=== PATIENT | male | born 1990 | race African-American/Black ===

== ENCOUNTER 2017-02-28 12:12 | Emergency (ER) | payer SELFPAY ==
[~2017-02-28] VITALS: Ht 190.5 cm; Wt 95.0 kg
[2017-02-28 12:13] VITALS: BP 167/97; PULSE 78; RESP 15; TEMP 98.2; O2SAT 99
--- NOTE | 2017-02-28 12:20 | PD ---
HPI Chief Complaint: Medication Refill Request Time Seen by Provider: 12:19 Travel History International Travel<30 days: No Contact w/Intl Traveler<30days: No Traveled to known affect area: No History of Present Illness HPI 26 YO M with PMH of HTN presents to the ED requesting a medication refill. Patient states he has been out of hydrochlorothiazide for 3 days. He states that he has follow-up with a new primary care provider early next month. He denies any somatic complaints but states that he gets quite anxious when he doesn't have his medication. He endorses history of familial blood pressure problems but no cardiac history. He does not smoke. States blood pressure was 137/80 this morning, which prompted him to seek treatment. Visiting a cousin in [facility]. Lives in [facility]. PFSH Past Medical History Cardiovascular Problems: Yes (htn) Respiratory: Yes (astma) Social History Tobacco Use: No Allergies-Medications (Allergen,Severity, Reaction): Coded Allergies: Shellfish (Verified Allergy, Unknown, 02/28/17) Review of Systems Except as stated in HPI: all other systems reviewed are Neg Physical Exam Narrative GENERAL: Well-nourished, well-developed pleasant athletic black male in no acute distress. SKIN: Focused skin assessment warm/dry. HEAD: Normocephalic. EYES: No scleral icterus. No injection or drainage. NECK: Supple, trachea midline. No JVD or lymphadenopathy. CARDIOVASCULAR: Regular rate and rhythm without murmurs, gallops, or rubs. RESPIRATORY: Breath sounds clear and equal bilaterally. No accessory muscle use. GASTROINTESTINAL: Abdomen soft, non-tender, nondistended. Active bowel sounds. MUSCULOSKELETAL: No cyanosis, or edema. Ambulatory with a normal gait. BACK: Nontender without obvious deformity. No CVA tenderness. Data Data Last Documented VS Vital Signs Date Time Temp Pulse Resp B/P Pulse Ox O2 Delivery O2 Flow Rate FiO2 02/28/17 12:13 98.2 78 15 167/97 99 Orders Hydrochlorothiazide (Hydrodiuril) (02/28/17 12:30) [facility] Medical Decision Making Medical Screen Exam Complete: Yes Emergency Medical Condition: Yes Differential Diagnosis Chronic hypertension versus medication refill versus anxiety versus other Narrative Course 26 YO M with PMH of HTN presents to the ED requesting a medication refill. Patient states he has been out of hydrochlorothiazide for 3 days. He is visiting a cousin here and lives in [facility]. He states that he has follow- up with a new primary care provider early next month. He denies any somatic complaints but states that he gets quite anxious when he doesn't have his medication. He endorses history of familial blood pressure problems but no cardiac history. He does not smoke. States blood pressure was 137/80 this morning, which prompted him to seek treatment. Vitals reviewed. BP 167/97 in triage. I discussed the long-term benefits of maintaining a normal blood pressure and educated the patient regarding the acute risks of high blood pressure. Prescribed him hydrochlorothiazide 25 mg daily 30 days. First dose was administered in the ED. He is instructed to take the medication as prescribed, follow up as planned, return to the ED for any emergent medical condition. He indicated understanding of the instructions and is agreeable with the care plan. He is stable and discharged home. Diagnosis Primary Impression: Medication refill Referrals: Primary Care Physician Patient Instructions: Chronic Hypertension (ED), General Instructions Additional Instructions: Rest, hydrate. Take medication as prescribed. Follow-up with primary care provider early next month as planned. Return to the ED for any urgent or emergent medical condition. Med/Other Pt SpecificInfo: Prescription(s) given Scripts Hydrochlorothiazide 25 Mg Tab25 Mg PO DAILY #30 TAB Ref 0 Prov:So Will MD 02/28/17 Disposition: 01 DISCHARGE HOME Condition: Stable Kelly Hoang Feb 28, 2017 12:20
[2017-02-28] MEDS ORDERED: HYDR25TA5 PO ×2 (12:27→12:28)
[2017-02-28] MEDS ORDERED: HYDROCHLOROTHIAZIDE 25 MG TAB PO ONE (12:30)
[2017-02-28 12:33] VITALS: BP 142/85
== END 2017-02-28 12:39 | disposition home or self-care (01) ==
LOC: NEPD 12:12
DX: Z76.0 Encounter for issue of repeat prescription (principal); I10 Essential (primary) hypertension; J45.909 Unspecified asthma, uncomplicated
CPT/HCPCS: 99283

== ENCOUNTER 2017-06-26 12:08 | Emergency (ER) | payer SELFPAY ==
[~2017-06-26] VITALS: Ht 185.4 cm; Wt 98.0 kg
[~2017-06-26 12:08] MED LIST: HYDR25TA5 PO
[2017-06-26 12:10] VITALS: BP 152/83; PULSE 78; RESP 15; TEMP 98.4; O2SAT 98
--- NOTE | 2017-06-26 12:25 | PD ---
HPI Chief Complaint: Headache Time Seen by Provider: 12:24 Travel History International Travel<30 days: No Contact w/Intl Traveler<30days: No Traveled to known affect area: No History of Present Illness HPI 26-year-old Afro-[place] male presents the emergency department with reports of intermittent hand and fingers tingling and numbness at night mostly in the left arm as opposed to the right. 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 She also concerned that he had a headache upon awakening this morning. Patient states the headache is now gone. He denies any numbness or tingling currently. He recently started Benicar as a blood pressure medication , and wasn't sure if this had something to with his symptoms. Patient currently has no pain. He is allergic to shellfish. PFSH Past Medical History Cardiovascular Problems: Yes (htn) Diminished Hearing: No Hypertension: Yes Respiratory: Yes (astma) Immunizations Current: No Social History Alcohol Use: Yes (rarely ) Tobacco Use: No Substance Use: No Allergies-Medications (Allergen,Severity, Reaction): Coded Allergies: shellfish derived (Unverified Allergy, Unknown, 06/26/17) Reported Meds & Prescriptions Reported Meds & Active Scripts Active Hydrochlorothiazide 25 Mg Tab 25 Mg PO DAILY Reported Hydrochlorothiazide 25 Mg Tab 25 Mg PO DAILY Review of Systems Except as stated in HPI: all other systems reviewed are Neg General / Constitutional: No: Fever Eyes: No: Visual changes HENT: No: Headaches Cardiovascular: No: Chest Pain or Discomfort Respiratory: No: Shortness of Breath Gastrointestinal: No: Abdominal Pain Genitourinary: No: Dysuria Musculoskeletal: No: Pain Skin: No Rash Neurologic: No: Weakness Psychiatric: No: Depression Endocrine: No: Polydipsia Hematologic/Lymphatic: No: Easy Bruising Physical Exam Narrative GENERAL: Patient appears no acute distress. SKIN: Warm and dry. Normal color. No rash. HEAD: Atraumatic. Normocephalic. EYES: Pupils equal and round. No scleral icterus. No injection or drainage. ENT: No nasal bleeding or discharge. Mucous membranes pink and moist. Pharynx is clear. TMs are clear. No sinus tenderness. NECK: Trachea midline. No bony tenderness or step-off. Range of motion is full and supple. CARDIOVASCULAR: Regular rate and rhythm. RESPIRATORY: No accessory muscle use. Clear to auscultation. Breath sounds equal bilaterally. GASTROINTESTINAL: Abdomen soft, non-tender, nondistended. Hepatic and splenic margins not palpable. MUSCULOSKELETAL: Extremities without clubbing, cyanosis, or edema. No obvious deformities. Normal director business integration strength bilaterally. Normal upper extremity strength bilaterally. No reproducible symptoms at this time. NEUROLOGICAL: Awake and alert. No obvious cranial nerve deficits. Motor grossly within normal limits. Five out of 5 muscle strength in the arms and legs. Normal speech. PSYCHIATRIC: Appropriate mood and affect; insight and judgment normal. Data Data Last Documented VS Vital Signs Date Time Temp Pulse Resp B/P (MAP) Pulse Ox O2 Delivery O2 Flow Rate FiO2 06/26/17 12:10 98.4 78 15 152/83 (106) 98 MDM Medical Decision Making Medical Screen Exam Complete: Yes Emergency Medical Condition: No Differential Diagnosis Carpal tunnel. Ulnar entrapment. Neuritis. Repetitive motion injuries. Narrative Course A medical screening exam was performed: At the time of evaluation the presenting medical condition was determined not to be of an emergent nature. The patient was given the option of receiving additional care, but declined. Patient was given options for additional community resources from which to obtain care. The Patient Has Been advised to seek medical attention for their presenting complaint. The patient has been advised to return to the ER at any time if an emergent condition develops. Condition: Stable Alex Wesley Jun 26, 2017 12:25
== END 2017-06-26 13:01 | disposition left against medical advice (07) ==
LOC: NEPC 12:08
DX: R51 Headache (principal)
CPT/HCPCS: 99281